=== PATIENT | male | born 1955 | race Caucasian/White ===

== ENCOUNTER → 2019-09-04 08:05 | Outpatient (BNVA) | payer SELFPAY | PROVIDERS: Visit Provider Nurse Practitioner Family | DX: R39.9 Unspecified symptoms and signs involving the genitourinary system (principal); Z87.438 Personal history of other diseases of male genital organs | CPT/HCPCS: 81000 ==

== ENCOUNTER → 2020-08-03 08:30 | Outpatient (BNVA) | payer SELFPAY | PROVIDERS: PCP Nurse Practitioner Family; Referring Provider Nurse Practitioner Family; Visit Provider Urology | DX: Z12.5 Encounter for screening for malignant neoplasm of prostate (principal); N40.1 Benign prostatic hyperplasia with lower urinary tract symptoms; R35.1 Nocturia; N20.1 Calculus of ureter; R35.8 Other polyuria | CPT/HCPCS: 81003; G0103 ==

== ENCOUNTER → 2020-09-15 15:51 | Outpatient (BNVA) | payer SELFPAY | PROVIDERS: PCP Nurse Practitioner Family; Visit Provider Urology | DX: N40.1 Benign prostatic hyperplasia with lower urinary tract symptoms (principal); N20.1 Calculus of ureter; R33.9 Retention of urine, unspecified | CPT/HCPCS: 81003 ==

== ENCOUNTER → 2020-10-01 08:58 | Outpatient (BNVA) | payer SELFPAY | PROVIDERS: PCP Nurse Practitioner Family; Visit Provider Urology | DX: N40.1 Benign prostatic hyperplasia with lower urinary tract symptoms (principal); R33.9 Retention of urine, unspecified | CPT/HCPCS: 81003 ==

== ENCOUNTER → 2021-09-30 13:47 | Outpatient (BNVA) | payer SELFPAY | PROVIDERS: PCP Nurse Practitioner Family; Visit Provider Urology | DX: N40.1 Benign prostatic hyperplasia with lower urinary tract symptoms (principal); R33.9 Retention of urine, unspecified; N30.80 Other cystitis without hematuria | CPT/HCPCS: 81003; 87086 ==

== ENCOUNTER 2021-10-20 11:25 | Observation (INO) | payer SELFPAY ==
[2021-10-19 11:29] VITALS: BMI 32.1
[2021-10-20] VITALS (14 sets, daily range): BP systolic 106–153; BP diastolic 54–94; PULSE 58–90; RESP 16–20; TEMP 36.1–36.8; O2SAT 94–98; BMI 33.7
--- NOTE | 2021-10-20 06:12 | W.PM.OPSUD ---
Surgery/Procedure H&P Update DATE OF PROCEDURE: October 20, 2021 DATE H&P PERFORMED: 09/30/21 H&P UPDATE INFORMATION: I have reviewed H&P completed within last 30 days, I have examined patient prior to procedure, Changes to prior documentation as noted here and [place] [facility] [place] indicated CHANGES TO PREVIOUS DOCUMENTATION: Started on AUGMENTIN after last visit based on the culture growing >100k step and cystoscopic fingings of cystitis cystica. He could not tell any difference in his symptoms after being on the Augmentin for about 10 days Reviewed the need to continue antibiotics based on cystitis cystica findings. PREOP DIAGNOSIS: BPH/obstruction. Refractory PLANNED PROCEDURE: Operation Date: 10/20/21 08:45 Proposed Procedures s CYSTOSCOPY TRANSURETHRAL RESECTION OF PROSTATE 12432/N40.1(Not Applicable) - Reddy Smith MD p Cystoscopy(Not Applicable) - Reddy Smith MD
[2021-10-20] MEDS: sodium chloride 0.9% 1,000 ML 30 ML IV (06:31)
--- NOTE | 2021-10-20 08:20 | ANES.PREANE2 ---
Pre-Anesthetic Assessment Height/Weight: Height 1.7 m Weight 92.986 kg Temp Pulse Resp BP Pulse Ox 98.2 F 63 18 142/79 95 10/20/21 06:13 10/20/21 06:13 10/20/21 06:13 10/20/21 06:13 10/20/21 06:13 Preop Diagnosis: BPH/obstruction. Refractory Operation Date: 10/20/21 08:45 Proposed Procedures s CYSTOSCOPY TRANSURETHRAL RESECTION OF PROSTATE 24931/N40.1(Not Applicable) - Reddy Smith MD p Cystoscopy(Not Applicable) - Reddy Smith MD Familial anesthetic complications: none Was Beta Lucio taken within 24 hours: N/A Was Clonidine taken within 24 hours: N/A Last intake: Intake Last Liquid Date 10/19/21 Last Liquid Time 20:30 Last Solid Date 10/19/21 Last Solid Time 20:00 Social No alcohol and No tobacco Exam alert, oriented x 3, clear to auscultation bilaterally and regular rate & rhythm Airway Submandibular: Other (Limited, recessed chin) Cervical ROM: Other (Limited extension ) Mallampati: Class III Dentition: chipped Comments: Comments: Multiple fillings Pulmonary None reported CV/HEM None reported BPH Cystitis Hepatic None reported GI Gastroesophageal Reflux Disease and None reported Musc/skel Lower Back Pain Neuropsych None reported Anesthetic Plan ASA status: 2 Anesthesia: Anesthesia Evaluation and General Other: We discussed risk and benefits of general anesthesia including PONV, sore throat (sometimes severe), corneal abrasion, positioning and peripheral nerve injuries, life threatening allergic reaction, post operative ICU admission requiring prolonged intubation, stroke, heart attack, , and rare incidences of recall. Patient consents to proceed with general anesthesia. Risk of > 500 ml blood loss (7ml/kg in children): No Medications/Allergies Home Medications Medication Instructions Recorded Confirmed Last Taken Type magnesium oxide 500 mg capsule 500 mg PO DAILY 09/15/20 10/20/21 10/19/21 History tamsulosin 0.4 mg capsule See Rx Instructions .ROUTE 09/30/21 10/20/21 10/19/21 Rx .COMPLEX #60 cap amoxicillin 875 mg-potassium 1 tab PO BID #60 tab 10/05/21 10/20/21 10/19/21 Rx clavulanate 125 mg tablet Allergies Allergy/AdvReac Type Severity Reaction Status Date / Time No Known Allergies Allergy Verified 09/30/21 13:58 Current Medications Generic Name Dose Route Start Last Admin Trade Name Freq PRN Reason Stop Dose Admin Sodium Chloride 1,000 mls @ 30 mls/hr 10/20/21 06:15 10/20/21 06:31 Sodium Chloride 0.9% IV 10/21/21 06:14 30 mls/hr .Q24H JODY Administration PFSH Anesthesia Medical History BPH loc w urin obs/LUTS History of prostatitis Incomplete bladder emptying Nocturia Urinary frequency Family History Mother , at age 86 No problems noted. Father , at age 40 Accidental drowning Social History Smoking and tobacco status: former smoker Second hand smoke exposure: No Alcohol intake: never Lives independently: Yes Household members: spouse Marital status: Current occupational status: employed and retired History of recent travel: No Current gender identity: Male Data Anesthesia Cardiac Studies: No Data to Display
--- NOTE | 2021-10-20 09:09 | P.OP_ITS ---
Operative Report Date of procedure: October 20, 2021 Pre-op diagnosis: BPH/obstruction. Refractory symptoms. Post-op diagnosis: BPH/obstruction. Refractory symptoms. Procedure done: Cystoscopy, transurethral vaporization/sampling resection of the prostate Implants: Bains catheter Specimens removed/disposition: Some prostatic data entry representative chips. Pathology: Prostate chips, sampling of prostate tissue. Most of the specimen was vaporized Surgeon: Smith Anesthesia: General Estimated blood loss: Minimal Urine output: Not measured Complications: None Findings: Very atypical prostate configuration. High bladder neck. Very fibrous tissue not typical for glandular hyperplasia. More stromal. Severely trabeculated bladder with multiple diverticuli and cellules. Prostatic fossa well opened at the completion of the procedure. Brief History: Mr. Klein is a very pleasant 66-year-old white male with a history of progressive lower urinary tract symptoms consistent with BPH/obstruction. Was noted to have elevated PVRs on several occasions and was treated medically for BPH with TAMSULOSIN. Minimal improvement noted. Last PVR was 260 cc. AUA symptom score was 22. Urinalysis showed some bacteria and white cells and a cystoscopy confirmed CHRONIC CYSTITIS CYSTICA with culture demonstrating strep. Was treated with Augmentin. Antibiotics did not change his symptoms. Cystoscopy also demonstrated lateral lobe hypertrophy and severe trabeculation of the bladder. His options were thoroughly discussed and he ultimately elected to proceed with surgical intervention. Admitted for TURP/TUVP Procedure: After routine preoperative evaluation examination and obtaining of informed consent he was taken to the operating suite on 10/20/2021 where general anesthesia was administered without difficulty after appropriate timeout was performed, SCDs confirmed to be functioning, preoperative antibiotics administered, beta- dawit protocol confirmed. Prepped and draped in usual sterile fashion in dorsolithotomy position paying careful attention to avoiding pressure points. 21 Gambian cystoscope with 30 degree lens was introduced into the urethra meatus and advanced into the bladder without difficulty. He did have some large caliber urethral strictures were easily bypassed. The bladder was systematically examined. The prostate did not look overly enlarged but had a very high bladder neck that was somewhat difficult to bypass. His bladder was severely trabeculated with innumerable cellules and diverticuli some quite large. The orifices were just inside the elevated bladder neck but easily i dentifiable and separate from the bladder neck. There was not much distance between the bladder neck and the trigone. The verumontanum was easily identified. For initial dilation a 23 Gambian sheath and then a 25 Gambian sheath with the cystoscope were passed into the bladder. Urethra was then calibrated with [place] sounds and easily accommodated 30 Gambian. 2% lidocaine jelly was instilled into the urethra and a 25 Gambian continuous- flow resectoscope sheath with visual obturator in place was advanced into the bladder again with some minor difficulty bridging the bladder neck. The [employer] bipolar system was utilized for resection and vaporization. Based on the configuration of the prostate and not a lot of bulky tissue it was decided to initially vaporized using the button probe. Initial vaporization included a trough at the 6 o'clock position paying careful attention to staying well away from each ureteral orifice. This allowed some springing open of the bladder neck which helped ease the passage of the scope into the bladder further meaning of the procedure. The trough was carried out to the verumontanum. The tissue was very fibrous in its appearance. Attention was then directed to the 9:00 and 3 o'clock position to try to sparing the bladder neck open even more. There was not a large amount of typical adenomatous type tissue but more fibrous smaller volume type tissue. Circumferential vaporization of the bladder neck again paying careful attention to staying well away from the orifices was then performed. Vaporization was then continued from roughly the 12 o'clock position down to the 7 o'clock position from the bladder neck out to but not distal to the verumontanum. This was then performed same way on the opposite side. The super loop was utilized to do some resection of data entry representative tissue and some of the more distal tissue of the lateral lobes proximal to the verumontanum. Not a lot of tissue was resected in that most of the tissue was treated with vaporization. Even with extensive vaporization is still was not a widely open typical intra prostatic lumen. I was very careful to try to avoid any significant deep vaporization based on the concern for this not being a huge prostate but more just fibrous obstructive component. The tissue on the floor was further vaporized and opened. All chips were evacuated from the bladder. The orifices were confirmed to be uninvolved with the resection. The tissue distal to the verumontanum was undisturbed. The post resection lumen of the prostate was much improved but still not typical. But clearly well opened for improved voiding. Floor the prostate was then harvested as well. All chips were confirmed to have been evacuated from the bladder with detailed examination of all large posterior diverticuli. The button probe was utilized to perform sculpting and hemostatic vaporization of the prostatic fossa. At the completion of the procedure all chips were confirmed to be out of the bladder. Hemostasis was visually confirmed to be good. First attempt at passing a 20 Gambian three-way Bains catheter was unsuccessful. Cystoscope was then passed in the bladder and a flexible guidewire was passed without difficulty through the scope into the bladder and this allowed the catheter which was then converted to a cherokee tip catheter to go easily into the bladder. It appears that a coud? tip catheter would have worked fine given the configuration of the prostate but did not have a three-way 30 cc balloon three-way 20 Gambian catheter. Catheter was confirmed to be functioning well. It was irrigated and the efflux was clear. Low flow CBI was initiated. The efflux remained clear. He tolerated the procedure well without complications and was awakened in the operating room and returned to the recovery room in stable condition. PLANS: 1. Admit to observation status with anticipated discharge tomorrow 2. Given the atypical configuration of the prostate the catheter and at discharge. We will plan on doing a voiding trial in my office early next week. 3. Continue antibiotics at discharge based on cystitis cystica changes.
[2021-10-20] MEDS: levofloxacin-dextrose 5 % 500 MG/100 ML PREMIX 100 MG IV (09:12)
[2021-10-20] MEDS: lidocaine 2% Urojet 20 mL TOPICAL (09:52)
[2021-10-20] MEDS: dextrose 5%-ns + KCl 20 20 MEQ/1,000 ML BAG 100 MEQ IV ×2 (12:16→21:44)
--- NOTE | 2021-10-20 12:21 | PC.NURSE ---
continuous bladder irrigation came to med surg clamped. orders acknowledged. unclamped to slow steady drip. Clear output.
--- NOTE | 2021-10-20 13:38 | ANE.PACU2 ---
Inpatient post-anesthesia follow up: Airway intact: Yes Vital signs: Temperature 98.2 F Pulse Rate 58 Respiratory Rate 18 Blood Pressure 113/59 Pulse Oximetry 97 Oxygen Delivery Me thod Room Air Oxygen Flow Rate 6 Fraction of Inspir ed Oxygen Hydration adequate: Yes Nausea and vomiting: No Pain level: 1 Mental status: Baseline
[2021-10-20] MEDS: amoxicillin-clav 875-125 mg Tablet 1 TAB PO (17:19)
[2021-10-20] MEDS: docusate sodium 100 mg Capsule PO (17:20)
--- NOTE | 2021-10-20 18:26 | PM.MISC ---
Miscellaneous Note Purpose of Documentation: Postop check Note: Evening of surgery: TUVP. Doing well. No complaints. Urine is clear. Catheter is functioning well. Discussed intraoperative findings and his rather atypical architecture of his prostate mostly from a stromal perspective versus adenomatous type tissue. Reviewed with him leaving the catheter in at discharge and remove in early next week with a voiding trial possibly [facility] instruction with a coud? catheter. Expressed good understanding. Anticipate discharge early tomorrow morning if urine remains clear. We will plan on tapering off CBI overnight
[2021-10-20] MEDS: tamsulosin 0.4 mg Capsule 0.8 MG PO (20:09)
[2021-10-21 03:07] VITALS: PULSE 78; O2SAT 95
[2021-10-21 06:00] VITALS: PULSE 78
[2021-10-21 07:17] VITALS: BP 136/69; PULSE 62; RESP 17; TEMP 36.7; O2SAT 95
--- NOTE | 2021-10-21 07:21 | PM.DCS ---
Discharge Providers Date of Admission: 10/20/21 11:25 Date of Discharge: October 21, 2021 Attending Provider at Admission: Reddy Smith MD Attending Provider at Discharge: Reddy Smith MD Primary Care Provider: EUNICE Bergman Diagnoses at Discharge Discharge Diagnosis (1) BPH loc w urin obs/LUTS: Status: Acute (2) Cystitis cystica: Status: Acute (3) Incomplete bladder emptying: Status: Acute Reason for Visit Reason for Visit: Brief History: Mr. Klein is a very pleasant 66-year-old white male with longstanding progressive lower urinary tract symptoms consistent with BPH/obstruction, elevated PVR, and nocturia. Minimal improvement on medical therapy. Cystoscopy revealed severely trabeculated bladder with cellule formation and diverticuli formation. Ultimately he elected surgical intervention. Hospital Course Hospital Course Admitted for TUVP/TURP on 10/20/2021. Procedure went well. He did have an unusual architecture of the prostate with very stromal type tissue as opposed to typical glandular/adenomatous type tissue. At the completion of the procedure he was wide open. Catheter was left indwelling at discharge for further healing and a is scheduled for follow-up on 10/25/2021. Postoperative course was unremarkable. Urine remained clear. CBI was weaned off quickly. He was trained in catheter management with leg and night bags. Discharged on postoperative day 1 in stable condition. Physical Exam Narrative: Alert oriented no acute distress Respiratory unlabored without wheezing Abdomen without distention No complaints. Urine clear. Urinary Catheter Management: Bains: Cath Placed During This Visit: yes Reason for Continuing Indwelling Catheter: Other Urinary Catheter Date of Insertion: 10/20/21 Urinary Catheter Time of Insertion: 10:38 Discharge Data Studies Completed and Pending Pending at discharge Category Date Time Status Pathology: Surgical [PTH] Routine Pth 10/20/21 11:02 Received Vitals Last Vital Signs Temp 98.1 F 10/21/21 07:17 Pulse 62 10/21/21 07:17 Resp 17 10/21/21 07:17 BP 136/69 10/21/21 07:17 Pulse Ox 95 10/21/21 07:17 Discharge Plan Discharge Patient Disposition: Home Condition: Stable Prescriptions: Continued magnesium oxide 500 mg capsule 500 mg PO DAILY 0RF tamsulosin 0.4 mg capsule See Rx Instructions .ROUTE .COMPLEX Qty: 60 12RF Dose Instruction: TAKE 2 CAPSULES BY MOUTH AT BEDTIME Rx Instructions: TAKE 2 CAPSULES BY MOUTH AT BEDTIME amoxicillin-pot clavulanate 875-125 mg tablet 1 tab PO BID Qty: 60 0RF Discharge Orders: Discharge Order (Routine); Ordered 10/21/21 Ordered By: Reddy Smith Referrals: Reddy Smith MD [Physician] - 10/25/21 (Voiding trial, possible [facility].) Discharge Diet: Usual diet Discharge Activity: Limit activity as instructed Patient Instructions: Opioid Safety Activity Restrictions/Additional Instructions: 1. Maintain Bains catheter until clinic visit early next week. 2. We will perform a voiding trial which involves filling the bladder with water through the catheter and removing the catheter. We will assess how much you void relative to what was instilled. 3. Continue the TAMSULOSIN and AUGMENTIN for now. 4. You will be provided a leg bag and night bag. It is your personal choice which 1 to use based on your preference 5. Please call the hospital candy forming machine operator if he have any concerns or questions between now and then. Telephone number is [phone] Discharge Attestations Time Spent in Discharge Care*: less than 30 min Quality Metrics Clinical Quality Measures [ No reported AMI, CVA or VTE this stay] Coding Level of Care Code Acute Chg FW DC note Diagnoses BPH loc w urin obs/LUTS N40.1 Cystitis cystica N30.80 Incomplete bladder emptying R33.9
[2021-10-21 07:45] VITALS: BP 136/69; PULSE 62; RESP 17; TEMP 36.7; O2SAT 95
[2021-10-21 08:02] VITALS: PULSE 73; O2SAT 95
== END 2021-10-21 11:01 | disposition home or self-care (01) ==
LOC: MEDSURG 10-21 01:59
PROVIDERS: Admitting Provider Urology; PCP Nurse Practitioner Family; Visit Provider Urology
PROC: 0VT08ZZ Resection of Prostate, Via Natural or Artificial Opening Endoscopic (ICD-10-PCS; CPT 52601; principal; 2021-10-20 08:45)
PROC: 0TJB8ZZ Inspection of Bladder, Via Natural or Artificial Opening Endoscopic (ICD-10-PCS; CPT 52000; 2021-10-20 08:45)
DX: N40.1 Benign prostatic hyperplasia with lower urinary tract symptoms (principal); N13.8 Other obstructive and reflux uropathy; N30.80 Other cystitis without hematuria; R33.9 Retention of urine, unspecified; K21.9 Gastro-esophageal reflux disease without esophagitis; Z87.891 Personal history of nicotine dependence
CPT/HCPCS: 52601; 88305; G0378; J1100; J1956; J2370; J2405; J2704; J2710; J3010; J3490; J7030

== ENCOUNTER → 2021-10-25 12:14 | Outpatient (BNVA) | payer MEDICARE, SELFPAY | PROVIDERS: PCP Nurse Practitioner Family; Visit Provider Urology | DX: Z98.890 Other specified postprocedural states (principal); N40.1 Benign prostatic hyperplasia with lower urinary tract symptoms; R33.9 Retention of urine, unspecified; N30.80 Other cystitis without hematuria | CPT/HCPCS: 99024 ==

== ENCOUNTER → 2022-06-24 10:00 | Outpatient (BNVA) | payer MEDICARE, SELFPAY | PROVIDERS: PCP Nurse Practitioner Family; Visit Provider Family Medicine | DX: R19.7 Diarrhea, unspecified (principal) | CPT/HCPCS: 82274; 87493 ==

== ENCOUNTER → 2024-06-04 12:58 | Outpatient (BNVA) | payer MEDICARE, OTHER, SELFPAY | PROVIDERS: PCP Nurse Practitioner Family; Visit Provider Nurse Practitioner Family | DX: R19.7 Diarrhea, unspecified (principal) | CPT/HCPCS: 87045; 87177; 87209; 87427; 87449; 87493 ==

== ENCOUNTER → 2025-04-08 12:41 | Outpatient (BNVA) | payer MEDICARE, OTHER, SELFPAY | PROVIDERS: PCP Nurse Practitioner Family; Visit Provider Nurse Practitioner Family | DX: R31.9 Hematuria, unspecified (principal) | CPT/HCPCS: 81003; 87086 ==